=== PATIENT | female | born 1975 | race Caucasian/White ===

== ENCOUNTER 2023-06-05 11:20 | Inpatient (IN) | payer MEDICAID ==
[~2023-06-05] VITALS: Ht 157.5 cm; Wt 81.6 kg
--- NOTE | 2023-06-05 11:20 | NUR ---
[facility] TO ER BED 1
[2023-06-05 11:34] VITALS: BP 130/80; PULSE 100; RESP 20; TEMP 98.1; O2SAT 99
--- NOTE | 2023-06-05 11:39 | NUR ---
MOVED TO ER BED 5
--- NOTE | 2023-06-05 11:51 | NUR ---
Lab at bedside.
[2023-06-05 12:02] LABS: BASOPHILS % (AUTO) 0.8 % (0.0-2.0); EOSINOPHILS % (AUTO) 0.5 % (0.0-4.0); HEMATOCRIT 20.6 % (36-48); LYMPHOCYTES # (AUTO) 1.2 K/uL (2.5-16.5); LYMPHOCYTES % (AUTO) 20.3 % (20.5-51.1); MEAN CORPUSCULAR HEMOGLOBIN 35 pg (27-31); MEAN CORPUSCULAR HGB CONC 34 g/dL (33-37); MEAN CORPUSCULAR VOLUME 103.1 fL (80-94); MONOCYTES # (AUTO) 0.5 K/uL (0.8-1.0); MONOCYTES % (AUTO) 8.1 % (1.7-9.3); NEUTROPHILS # (AUTO) 4.3 K/uL (1.8-7.7); NEUTROPHILS % (AUTO) 70.3 % (42.2-75.2); PLATELET COUNT (AUTO) 28 K/uL (140-450); RED CELL DISTRIBUTION WIDTH 21.8 % (11.6-13.7); WHITE BLOOD COUNT (AUTO) 6.1 K/uL (4.8-10.8)
[2023-06-05 12:19] LABS: ALBUMIN 1.8 g/dL (3.4-5.0); ANION GAP 17.4 (8-16); CARBON DIOXIDE 23.8 mmol/L (21-32); CREATININE 0.5 mg/dL (0.6-1.3); POTASSIUM 4.2 mmol/L (3.5-5.1); TOTAL BILIRUBIN 8.3 mg/dL (0.0-1.0)
[2023-06-05] MEDS ORDERED: LORazepam 2 MG/ML VIAL IVP ONE (12:20)
[2023-06-05 13:02] LABS: APPEARANCE,URINE CLOUDY (CLEAR); BILIRUBIN,URINE 3+ (NEGATIVE); BLOOD, URINE 3+ (NEGATIVE); COLOR,URINE RED (YELLOW); LEUKOCYTE ESTERASE ,URINE TRACE (NEGATIVE); NITRITE, URINE POSITIVE (NEGATIVE); PH,URINE 6.5 (5.0-9.0); UGLUCOSE 1+ (NEGATIVE)
--- NOTE | 2023-06-05 13:02 | NUR ---
Patient is refusing blood transfusion. Dr. Canales explaining blood transfusion to patient.
[2023-06-05] MEDS ORDERED: ONDANSETRON 4 MG/2 ML VIAL IVP ONE (13:05)
[2023-06-05] MEDS ORDERED: MORPHINE SULFATE 4 MG/ML SYR IVP ONE (13:05)
[2023-06-05 13:10] LABS: RBC,URINE >100 /HPF (0-5)
--- NOTE | 2023-06-05 13:11 | NUR ---
Per patient, deniestaking any prescribed medication. Med rec complete.
--- NOTE | 2023-06-05 13:23 | NUR ---
1ST CONTACT WITH PT. IN BED 5. NO ACUTE DISTRESS. AWAKE AND ALERT. PT. WITH NO VOMITING OR EMESIS NOW. C/O ABD. PAIN AND WILL BE MEDICATED. PT. WITH ADB. DISTENSION NOW 2ND CHRONIC ALCOHOLISM. PT. WITH HAND TREMORS 2ND TO POSSIBLE ETOH WITHDRAWAL. PT. IS CALM AND COOPERTIVE.
[2023-06-05] MEDS ORDERED: HYDROcodone/APAP 7.5/325 MG 1 TAB PO PRN (13:30)
[2023-06-05] MEDS ORDERED: ZOLPIDEM 5 MG TAB PO PRN (13:30)
[2023-06-05] MEDS ORDERED: DOCUSATE SODIUM 100 MG GELCAP PO PRN (13:30)
[2023-06-05] MEDS ORDERED: ACETAMINOPHEN 325 MG TAB PO PRN (13:30)
[2023-06-05] MEDS ORDERED: ONDANSETRON 4 MG/2 ML VIAL IM/IVP PRN (13:30)
[2023-06-05] MEDS ORDERED: POTASSIUM CHLORIDE 10 MEQ TABER PO PRN (13:30)
[2023-06-05] MEDS ORDERED: guaiFENesin DM 200/20 MG-10 ML 10 ML UDC PO PRN (13:30)
[2023-06-05] MEDS ORDERED: LORazepam 2 MG/ML VIAL ONE (13:31)
[2023-06-05] MEDS ORDERED: OCTREOTIDE ACETATE 100 MCG/ML VIAL IV SCH (13:35)
--- NOTE | 2023-06-05 13:42 | NUR ---
PT. MEDICATED ORDERED AND WILL CONT. TO MONITOR. NO ACUTE DISTRESS.
--- NOTE | 2023-06-05 13:53 | NUR ---
PATIENT HAS BEEN SCREENED AND CATEGORIZED HIGH NUTRITION RISK. PATIENT WILL BE SEEN WITHIN 1-2 DAYS OF ADMISSION. 06/06/23-06/07/[address] DUNG [address]
[2023-06-05 14:00] LABS: PROTHROMBIN TIME 22.2 secs (10.8-13.4)
[2023-06-05 14:05] LABS: CHOL/HDL RATIO 8.4 (1-4.5); FREE T4 (FREE THYROXINE) 1.6 ng/dL (0.76-1.46); MAGNESIUM 1.5 mg/dL (1.8-2.4); PHOSPHORUS 2.1 mg/dL (2.5-4.9); THYROID STIMULATING HORMONE 3.95 uIU/mL (0.34-3.74)
--- NOTE | 2023-06-05 14:50 | NUR ---
Patient will be admitted to care of Dr. Navarro. Admited to Telemetry. Will go to room 110-B. Belongings list completed. Report to MIKEL Zavala.
--- NOTE | 2023-06-05 15:30 | NUR ---
RECEIVED PATIENT FROM ED. PATIENT ASLEEP NORMAL RISE AND FALL OF CHEST
[2023-06-05] MEDS: OCTREOTIDE ACETATE 1.25 MG in NACL 0.9% 250 ML IV SCH (15:54)
[2023-06-05] MEDS: DEXT 5% /NACL 0.9% 1,000 ML IV SCH (15:54)
--- NOTE | 2023-06-05 16:00 | NUR ---
PATIENT DROOLS BLOOD WHEN ASLEEP BUT WHEN AWAKE, BLEEDING NOT PRESENT.
[2023-06-05 16:24] VITALS: PULSE 103; RESP 18; O2SAT 97
--- NOTE | 2023-06-05 16:24 | NUR ---
The patient's care was reviewed and supervised by AMY PANG RN.
--- NOTE | 2023-06-05 17:15 | NUR ---
PATIENTS VITALS 110/78 110HR 98.7 TEMPERATURE 16RR. PATIENT SHOWS NO SIGNS OF REACTIONS. PATIENT IS STABLE AND AWAKE. AOx4. VERBALIZES NO CONCERNS Addendum: 06/05/23 at 2223 by KALIE LIRA RN WRONG TIME. NOTE TIME FOR 9672
--- NOTE | 2023-06-05 17:20 | NUR ---
PATIENT'S FAMILY VERBALIZES THAT PATIENT HAD SYMPTOMS 4 DAYS PRIOR. THEY MENTIONED OF BRUISES PRESENT ON THE PATIENT'S ARM, ABDOMEN, BACK AND RIGHT HEEL. FAMILY VERBALIZES BRUISES HAVE BEEN PRESENT SINCE 4 DAYS PRIOR.
--- NOTE | 2023-06-05 17:25 | NUR ---
CHARGE NURSE INFORMED OF ALL OF PATIENT'S CURRENT CONDITION. FAMILY ALSO SPOKE WITH CHARGE NURSE
--- NOTE | 2023-06-05 17:30 | NUR ---
PATIENT'S BLOOD TRANSFUSION STARTED. VITAL SIGNS TAKEN PRIOR TO STARTING, PATIENT VITALS STABLE WITHIN NORMAL CONDITIONS. 131/62 101 16 98.5
--- NOTE | 2023-06-05 17:30 | NUR ---
PATIENT UNDERGOING BLOOD TRANSFUSION. PATIENT SON AND BROTHER IN LAW PRESENT IN THE ROOM. PATIENT NOW AWAKE AND VITALS STABLE
--- NOTE | 2023-06-05 19:20 | NUR ---
PATIENT SEEN PRIOR TO TRANSFER OF CARE. PATIENT AWAKE, FAMILY AT BEDSIDE. PATIENT'S VITALS STABLE, BLOOD TRANSFUSION STILL INFUSING.
--- NOTE | 2023-06-05 19:30 | NUR ---
ENDORSED PATIENT TO PM NURSE FOR CONTINUATION OF CARE
--- NOTE | 2023-06-05 19:31 | NUR ---
RECEIVED ENDORSEMENT FROM KALIE RN, PATIENT WAS STILL RECEIVING THE BLOOD TRANSFUSION. NO NOTED ADVERSE REACTION FROM THE BLOOD PRODUCT. PATIENT WAS ABLE TO SPEAK WITH FAMILY ON HER CELL PHONE AND SPEAK WITH NURSING. PATIENT DENIES ANY PAIN/DISCOMFORT. ALL NEEDS WERE MET AT THIS TIME. NO NOTED RESPIRATORY DISTRESS. CHEST NOTED RISING AND FALLING WITHOUT INCIDENT. PATIENT KEPT CLEAN AND DRY AT THIS TIME. PATIENT DENIES ANY NAUSEA OR VOMITING. COVERING RN WAS NOTIFIED OF THE BLOOD INFUSING AND THE NEED FOR THE STATIN TO CONTINUE AFTER THE TRANSFUSING. SIDE RAILS UP X 2 FOR SAFETY AND ADJUSTMENT. CALL LIGHT WITHIN REACH FOR ALL ASSISTANCE. [email or web address]
[2023-06-05 20:00] VITALS: BP 121/58; PULSE 109; PULSE 111; RESP 18; TEMP 98.3; O2SAT 100; O2SAT 97
--- NOTE | 2023-06-05 20:00 | NUR ---
Patient's Plan of Care was discussed and reviewed with HEATHER MENDES:
--- NOTE | 2023-06-05 20:50 | NUR ---
BLOOD TRANSFUSION DONE. VITAL SIGNS FOLLOWS: BP-124/59 RR-16 HR-108 TEMP-97.0. PATIENT DENIES PAIN. NO ADVERSE REACTION NOTED.
--- NOTE | 2023-06-05 23:51 | NUR ---
PATIENT NOTED COUGHED UP SMALL AMOUNT OF BLOOD. NURSING GAVE HER MOUTH WASH TO GARGLE WITH THEN GAVE HER SOME WATER PER PATIENT'S REQUEST. ALL NEEDS MET AT THIS TIME. PATIENT WAS CLEANED UP. SIDE RAILS UP X 2 CALL LIGHT WITHIN REACH FOR ASSISTANCE. [email or web address]
[2023-06-06] VITALS: BP 120/56; PULSE 110; PULSE 111; RESP 18; TEMP 98.9; O2SAT 96
[2023-06-06] MEDS: DEXT 5% /NACL 0.9% 1,000 ML IV SCH ×2 (01:18→06:10)
--- NOTE | 2023-06-06 01:23 | NUR ---
SPOKE WITH PHARMACY TO VERIFY IF THE STATIN AND DEXTROSE 5% WITH NORMAL SALINE ARE COMPATIBLE AND THEY ARE. IV FLUID WERE STARTED. COVING RN WAS MADE AWARE. SIDE RAILS UP, CALL LIGHT WITHIN REACH. [email or web address]
[2023-06-06 04:00] VITALS: BP 123/67; PULSE 107; PULSE 108; RESP 19; TEMP 97.5; O2SAT 98
--- NOTE | 2023-06-06 05:03 | NUR ---
PATIENT WAS ABLE TO GIVE HERSELF A BED BATH. URINE COLLECTED FOR DRUG SCREEN. PATIENT COMPLAINED OF NAUSEA, COVERING RN GAVE ANTI-NAUSEA MEDICATION. PATIENT STILL HAS DRY BLOOD IN HER MOUTH. PATIENT WAS INSTRUCTED TO RINSE MOUTH OUT WITH WATER AND MOUTH WASH. PATIENT'S BEDDING WAS COMPLETELY CHANGED OUT. ALL NEEDS MET SIDE RAILS UP X 2 CALL LIGHT WITHIN REACH. [email or web address]
--- NOTE | 2023-06-06 05:03 | NUR ---
PATIENT WAS ASLEEP. CHEST WAS RISING AND FALLING WITHOUT INCIDENT. ALL NEEDS MET. PATIENT REMAINS CLEAN AND DRY. NO S/S OF PAIN/DISCOMFORT. SIDE RAILS UP X 2 CALL LIGHT WITHIN REACH. [email or web address]
[2023-06-06 06:28] LABS: BASOPHILS % (AUTO) 0.7 % (0.0-2.0); EOSINOPHILS % (AUTO) 0.3 % (0.0-4.0); HEMATOCRIT 21.1 % (36-48); HEMOGLOBIN 7.3 g/dL (12.0-16.0); LYMPHOCYTES # (AUTO) 0.4 K/uL (2.5-16.5); LYMPHOCYTES % (AUTO) 7.2 % (20.5-51.1); MEAN CORPUSCULAR HEMOGLOBIN 34 pg (27-31); MEAN CORPUSCULAR HGB CONC 35 g/dL (33-37); MEAN CORPUSCULAR VOLUME 99.2 fL (80-94); MONOCYTES # (AUTO) 0.6 K/uL (0.8-1.0); NEUTROPHILS % (AUTO) 81.8 % (42.2-75.2); PLATELET COUNT (AUTO) 24 K/uL (140-450); RED BLOOD CELL COUNT(AUTO) 2.13 MIL/uL (4.20-5.40); WHITE BLOOD COUNT (AUTO) 6.1 K/uL (4.8-10.8)
[2023-06-06] MEDS: BLOOD GLUCOSE MONITORING 1 DEV DEV FS SCH ×4 (06:55→21:31)
[2023-06-06 06:57] LABS: BENZODIAZEPINE, URINE POSITIVE ng/mL (NEG <=200)
[2023-06-06] MEDS: INSULIN LISPRO SLIDING SCALE 100 UNITS/ML VIAL SUBQ PRN ×4 (06:57→21:35)
[2023-06-06 06:58] LABS: BARBITURATE, URINE NEGATIVE ng/ml (NEG <=200); CANNABINOID, URINE NEGATIVE ng/mL (NEG <=50); COCAINE, URINE NEGATIVE ng/mL (NEG <=300); OPIATE, URINE POSITIVE ng/mL (NEG <=2000); PHENCYCLIDINE SCREEN,URINE NEGATIVE ng/mL (NEG <=25)
--- NOTE | 2023-06-06 07:03 | NUR ---
ENDORSED CARE TO PAYAL MORIN, PATIENT WAS STABLE DURING THE CHANGE OF SHIFT. ENDORSE PATIENT SHAKING D/T LAURA. [email or web address] Addendum: 06/06/23 at 0706 by Shala Sanchez LVN ERROR TO ABOVE NOTATION: ENDORSED CARE TO PAYAL MORIN, PATIENT WAS STABLE DURING THE CHANGE OF SHIFT. ENDORSE PATIENT HAS NEW ORDERS FOR PAIN MANAGEMENT FROM DR URBAN. PATIENT BLEEDS FROM THE MOUTH POST BLOOD TRANSFUSION. [email or web address]
[2023-06-06 07:10] LABS: ANION GAP 13.6 (8-16); CARBON DIOXIDE 24.8 mmol/L (21-32); CREATININE 0.6 mg/dL (0.6-1.3); POTASSIUM 3.4 mmol/L (3.5-5.1)
[2023-06-06] MEDS ORDERED: MAG SULF 2000 MG/WATER PREMIX 50 ML IV PRN (07:10)
[2023-06-06] MEDS ORDERED: DOCUSATE SODIUM 100 MG GELCAP PO PRN (07:10)
[2023-06-06] MEDS ORDERED: LORazepam 2 MG/ML VIAL IVP PRN (07:10)
[2023-06-06] MEDS ORDERED: POTASSIUM CHLORIDE 10 MEQ TABER PO PRN (07:10)
--- NOTE | 2023-06-06 07:10 | NUR ---
RECEIVED REPORT FROM MANAGER CARE NURSE FOR CONTINUITY OF CARE. PT STABLE AT THIS TIME.
[2023-06-06 08:00] VITALS: BP 124/60; PULSE 108; PULSE 110; RESP 18; TEMP 98.4; O2SAT 98
[2023-06-06 08:08] LABS: T4 (THYROXINE) 6.6 ug/dL (4.5-12.0)
--- NOTE | 2023-06-06 09:45 | NUR ---
TRIED TO PLACE A SECOND IV O N THE PATIENT BUT WAS UNABLE TO GET ONE. WILL ASK IF SOME ONE ELSE COULD TRY.
[2023-06-06] MEDS: PANTOPRAZOLE 40 MG INJ VIAL IVP SCH ×2 (09:47→21:25)
[2023-06-06] MEDS: MORPHINE SULFATE 2 MG/ML SYR IVP PRN (09:48)
[2023-06-06] MEDS: ONDANSETRON 4 MG/2 ML VIAL IVP PRN (09:48)
[2023-06-06] MEDS ORDERED: POTASSIUM CHLORIDE 40 MEQ, LIDOCAINE 1% 25 MG in NACL 0.9% 250 ML IV SCH (10:00)
--- NOTE | 2023-06-06 10:05 | NUR ---
RAN TRIED TO PLACE AN IV IN THE PATIENT FOR ME BUT WAS UNABLE TO GET ONE. WILL ASK CHARGE NURSE TO TRY.
[2023-06-06 12:00] VITALS: BP 108/56; PULSE 102; PULSE 104; RESP 20; TEMP 98.9; O2SAT 96
[2023-06-06] MEDS: OCTREOTIDE ACETATE 1.25 MG in NACL 0.9% 250 ML IV SCH (14:42)
[2023-06-06 16:00] VITALS: BP 115/55; PULSE 103; PULSE 120; RESP 18; TEMP 98.8; O2SAT 96
[2023-06-06 17:39] LABS: HEMATOCRIT 20.8 % (36-48); HEMOGLOBIN 7.1 g/dL (12.0-16.0)
--- NOTE | 2023-06-06 18:05 | NUR ---
GOT A CALL FROM LAB TO LET ME KNOW THAT THE PATIENTS HGB IS 7.1, HCT IS 20.8 AND LET ME KNOW THAT THE PLATELETS ARE 29 WHICH ARE SUPER LOW. I MESSAGED THE DR AND SHE SAID OKAY.
--- NOTE | 2023-06-06 19:26 | NUR ---
ENDORSED TO PRECAST CONCRETE IRONWORKER NURSE FOR CONTINUITY OF CARE. PT STABLE AT THIS TIME.
--- NOTE | 2023-06-06 19:30 | NUR ---
RECEIVED REPORT FROM DAY SHIFT NURSE PAYAL FOR CONTINUITY OF CARE. PATIENT IS A&O X4, YI SPEAKING. PATIENT IS ON ROOM AIR, BREATHING IS NORMAL WITH SYMMETRICAL RISE AND FALL OF CHEST. IV IS A 20G LAC AND 22G RFA; RUNNING SANDOSTATIN AT 10ML/HR. PATIENT IS AWAKE, LYING IN SEMI-FOWLERS POSITION. BED IS IN LOWEST POSITION, WHEELS LOCKED, CALL LIGHT IN PLACE. WILL CONTINUE TO OBSERVE PATIENT.
[2023-06-06 20:00] VITALS: BP 124/64; PULSE 110; PULSE 113; RESP 18; TEMP 98.3; O2SAT 98
--- NOTE | 2023-06-06 21:30 | NUR ---
WENT INTO ROOM TO ADMINISTER 2100 MEDICATIONS TO PATIENT. PATIENT WAS SITTING UP IN BED HOLDING BLANKET OVER LEFT AC; PATIENT'S IV HAD COME OUT. PLACED DRESSING OVER IV SITE AND APPLIED PRESSURE TO OLD IV SITE FOR A FEW MINUTES. REMOVED DRESSING AND ASSESSED SITE. PATIENT WAS NO LONGER BLEEDING. CLEANED PATIENT'S ARM WITH SOAP AND WATER, REMOVED BLANKETS AND GAVE PATIENT NEW BLANKETS. PATIENT IS STILL RUNNING SANDOSTATIN ON RIGHT FOREARM. ASKED PATIENT WHAT HAPPENED WITH HER IV; PATIENT WASN'T SURE. STOPPED PATIENT'S SANDOSTATIN; REMOVED IV AND FLUSHED SITE WITH 10 ML NS; ADMINISTERED 2100 IV PUSH MEDICATION TO PATIENT. FLUSHED SITE AGAIN WITH ANOTHER 10 ML NS; RE-HOOKED UP IV LINE AND RE-STARTED IV SANDOSTATIN. PATIENT IS LYING COMFORTABLY IN BED. BREATHING IS NORMAL WITH SYMMETRICAL RISE AND FALL OF CHEST. WILL CONTINUE TO OBSERVE PATIENT.
[2023-06-07] VITALS: BP 109/50; PULSE 100; PULSE 101; RESP 18; TEMP 97.2; O2SAT 98
--- NOTE | 2023-06-07 | NUR ---
PATIENT IS LYING SUPINE ON HER RIGHT SIDE IN BED. BREATHING IS NORMAL WITH SYMMETRICAL RISE AND FALL OF CHEST. WILL CONTINUE TO OBSERVE PATIENT.
[2023-06-07] MEDS: MORPHINE SULFATE 2 MG/ML SYR IVP PRN ×3 (03:44→23:51)
[2023-06-07] MEDS: ONDANSETRON 4 MG/2 ML VIAL IVP PRN ×2 (03:47→17:24)
--- NOTE | 2023-06-07 03:53 | NUR ---
PATIENT CALLED AND REQUESTED MORPHINE FOR PAIN. CHECKED VITALS AND CHART; MORPHINE WAS APPROPRIATE TO ADMINISTER. PATIENT ALSO COMPLAINED ABOUT NAUSEA AND VOMITING; ZOFRAN WAS APPROPRIATE TO ADMINISTER. MEDICATIONS WERE ADMINISTERED SUCCESSFULLY WITHOUT ANY ISSUES WITH IV. WILL CONTINUE TO OBSERVE PATIENT.
[2023-06-07 04:00] VITALS: BP 106/53; PULSE 95; PULSE 98; RESP 18; TEMP 97.6; O2SAT 98
--- NOTE | 2023-06-07 04:48 | NUR ---
LOOKED IN ON PATIENT TO REASSESS EFFECTIVENESS OF PAIN MEDICATION. PATIENT WAS SLEEPING. BREATHING IS NORMAL WITH SYMMETRICAL RISE AND FALL OF CHEST. IV IS RUNNING. WILL CONTINUE TO OBSERVE PATIENT.
[2023-06-07] MEDS: BLOOD GLUCOSE MONITORING 1 DEV DEV FS SCH ×4 (06:40→21:04)
[2023-06-07] MEDS: INSULIN LISPRO SLIDING SCALE 100 UNITS/ML VIAL SUBQ PRN ×4 (06:41→21:05)
[2023-06-07 06:43] LABS: BASOPHILS % (AUTO) 0.5 % (0.0-2.0); EOSINOPHILS % (AUTO) 0.4 % (0.0-4.0); HEMATOCRIT 20.2 % (36-48); LYMPHOCYTES # (AUTO) 0.7 K/uL (2.5-16.5); MEAN CORPUSCULAR HEMOGLOBIN 35 pg (27-31); MEAN CORPUSCULAR HGB CONC 34 g/dL (33-37); MEAN CORPUSCULAR VOLUME 102.4 fL (80-94); MONOCYTES # (AUTO) 0.8 K/uL (0.8-1.0); PLATELET COUNT (AUTO) 29 K/uL (140-450); RED BLOOD CELL COUNT(AUTO) 1.97 MIL/uL (4.20-5.40); RED CELL DISTRIBUTION WIDTH 22.3 % (11.6-13.7); WHITE BLOOD COUNT (AUTO) 5.5 K/uL (4.8-10.8)
[2023-06-07 06:48] LABS: ANION GAP 11.8 (8-16); CARBON DIOXIDE 26.9 mmol/L (21-32); CREATININE 0.8 mg/dL (0.6-1.3); POTASSIUM 3.7 mmol/L (3.5-5.1)
[2023-06-07 06:51] LABS: HEMOGLOBIN 6.9 g/dL (12.0-16.0)
--- NOTE | 2023-06-07 07:04 | NUR ---
RECEIVED CRITICAL LAB OF HGB 6.9. MESSAGED WARD CLERK PHYSICIAN DR. URBAN. ORDERED 1 UNIT RBC TO BE GIVEN AND STATED SHE WOULD MESSAGE DR. GAVIN SINCE MD ANEGLA IS OUT OF TOWN. PUT ORDER IN FOR PACKED RBC 1 UNIT. WILL ENDORSE TO DAY SHIFT NURSE.
[2023-06-07 07:08] LABS: LYMPHOCYTES % (AUTO) 12.6 % (20.5-51.1); MONOCYTES % (AUTO) 14.4 % (1.7-9.3); NEUTROPHILS % (AUTO) 72.1 % (42.2-75.2)
--- NOTE | 2023-06-07 07:10 | NUR ---
RECEIVED REPORT FROM FITNESS SALES CONSULTANT NURSE FOR CONTINUITY OF CARE. PT STABLE AT THIS TIME.
--- NOTE | 2023-06-07 07:29 | NUR ---
ENDORSED TO DAY SHIFT NURSE PAYAL FOR CONTINUITY OF CARE. PATIENT IS STABLE.
[2023-06-07 08:00] VITALS: BP 110/60; PULSE 96; PULSE 99; RESP 16; TEMP 97.6; O2SAT 96
--- NOTE | 2023-06-07 08:15 | NUR ---
ONE UNIT OF PRBC STARTED ON PATIENT.
[2023-06-07] MEDS: PANTOPRAZOLE 40 MG INJ VIAL IVP SCH (08:23)
[2023-06-07 08:47] LABS: ALBUMIN 1.6 g/dL (3.4-5.0); BILIRUBIN,DIRECT 5.4 mg/dL (0.0-0.3); TOTAL BILIRUBIN 10.5 mg/dL (0.0-1.0)
--- NOTE | 2023-06-07 09:00 | NUR ---
PT TOLERATING BLOOD WELL WITH NO COMPLAINTS AT THIS TIME. VITALS ARE WNL.
--- NOTE | 2023-06-07 10:24 | NUR ---
PT TAKEN TO SURGERY FOR EGD. PT STABLE. BLOOD WAS TAKEN WITH PATIENT BECAUSE I WAS NOT FINISHED.
[2023-06-07] MEDS ORDERED: fentaNYL citrate 0.05 MG/ML VIAL ONE (10:33)
[2023-06-07] MEDS ORDERED: MIDAZOLAM 5 MG/5 ML VIAL ONE (10:33)
--- NOTE | 2023-06-07 11:10 | NUR ---
PT RETURNED FROM EGD. THEY REPORTED NO BLEEDING SHOWN ON TEST. PT IS AWAKE BUT DROWSY. STABLE AT THIS TIME.
--- NOTE | 2023-06-07 11:15 | NUR ---
BLOOD HAD FINISHED IN OR BUT NOW WAITING FOR THE LINE TO BE CLEARED WITH NS. PT REMAINED STABLE THROUGHOUT THE WHOLE TRANSFUSION PROCESS.
[2023-06-07 12:00] VITALS: BP 111/65; PULSE 89; PULSE 91; RESP 19; TEMP 97.4; O2SAT 97
[2023-06-07] MEDS: SUCRALFATE 1 GM TAB PO SCH ×3 (12:17→21:03)
[2023-06-07] MEDS: MIDODRINE 5 MG TAB PO SCH ×2 (12:17→19:00)
[2023-06-07] MEDS: PENTOXIFYLLINE 400 MG TABER PO SCH ×2 (12:18→16:37)
[2023-06-07] MEDS ORDERED: fentaNYL citrate 0.05 MG/ML VIAL IVP ONE (14:05)
[2023-06-07] MEDS ORDERED: MIDAZOLAM 5 MG/5 ML VIAL IV ONE (14:05)
[2023-06-07] MEDS ORDERED: fentaNYL citrate 0.05 MG/ML VIAL IVP SCH (14:30)
[2023-06-07 16:00] VITALS: BP 129/76; PULSE 62; PULSE 94; RESP 18; TEMP 97.7; O2SAT 100
[2023-06-07] MEDS: LANSOPRAZOLE 30 MG CAPDR PO SCH (16:37)
[2023-06-07 16:57] LABS: BASOPHILS # (AUTO) 0.1 K/uL (0.00-0.22); EOSINOPHILS % (AUTO) 0.6 % (0.0-4.0); HEMATOCRIT 23.2 % (36-48); HEMOGLOBIN 7.8 g/dL (12.0-16.0); LYMPHOCYTES # (AUTO) 1.1 K/uL (2.5-16.5); LYMPHOCYTES % (AUTO) 17.6 % (20.5-51.1); MEAN CORPUSCULAR HEMOGLOBIN 34 pg (27-31); MEAN CORPUSCULAR HGB CONC 34 g/dL (33-37); MEAN CORPUSCULAR VOLUME 101.1 fL (80-94); MONOCYTES # (AUTO) 0.9 K/uL (0.8-1.0); NEUTROPHILS # (AUTO) 4.2 K/uL (1.8-7.7); NEUTROPHILS % (AUTO) 66.8 % (42.2-75.2); PLATELET COUNT (AUTO) 36 K/uL (140-450); RED CELL DISTRIBUTION WIDTH 21.5 % (11.6-13.7); WHITE BLOOD COUNT (AUTO) 6.3 K/uL (4.8-10.8)
--- NOTE | 2023-06-07 17:24 | NUR ---
ARCELIA MENDES, NOTIFIED ME THAT MY PATIENT IS VOMITING. I GRABBED HER THE ZOFRAN AND ADMINISTERED IT.
--- NOTE | 2023-06-07 18:44 | NUR ---
06/07/23 RD INITIAL ASSESSMENT COMPLETED PLEASE REFER TO NUTRITION ASSESSMENT UNDER CARE ACTIVITY FOR ESTIMATED NUTRITIONAL NEEDS. 1. CONTINUE FULL LIQUID DIET TOLERATED. WHEN/IF MEDICALLY APPROPRIATE, ADVANCE TO 60 GRAMS CARB CONTROLLED DIET. 2. MONITOR PO INTAKE AND GI SYMPTOMS 3. RD TO FOLLOW-UP 2-3 DAYS, HIGH RISK DAYNA BROWN RD
--- NOTE | 2023-06-07 19:30 | NUR ---
ENDORSED PT TO WATER PROOFER NURSE FOR CONTINUITY OF CARE. PT STABLE AT THIS TIME.
--- NOTE | 2023-06-07 19:33 | NUR ---
RECEIVED REPORT FROM AM NURSE FOR CONTINUITY OF CARE. PATIENT LYING IN BED AWAKE ALERT [place] SPEAKING. NO ACUTE DISTRESS ON ROOM AIR. NO COMPLAINTS OF PAIN. ABLE TO AMBULATE WITHOUT ASSIST. BRUISES NOTED TO LEFT SIDE, LEFT UPPER ARM, ABDOMEN. CALL LIGHT WITHIN REACH. SAFETY PRECAUTIONS IN PLACE. IV SITE TO RIGHT FOREARM SALINE LOCK.
[2023-06-07 20:00] VITALS: BP 117/69; PULSE 75; PULSE 90; PULSE 97; PULSE 99; RESP 19; TEMP 97.5; O2SAT 98
--- NOTE | 2023-06-07 21:03 | NUR ---
ADMINISTERED SCHEDULED DUE MEDICATION
--- NOTE | 2023-06-07 22:10 | NUR ---
PATIENT COMPLAINED OF PAIN TO IV SITE. STARTED A NEW IV LINE TO LEFT FOREARM 22 GAUGE WITH GOOD BACK FLOW OF BLOOD. TOLERATED WELL.
--- NOTE | 2023-06-07 23:51 | NUR ---
BUDGET ANALYST [id number] , PATIENT [id number] OF SEVERE PAIN 8/10 TO ABDOMEN AND RIGHT ARM. MEDICATED WITH MORPHINE IVP.
[2023-06-08] VITALS: BP 116/50; PULSE 90; PULSE 93; RESP 18; TEMP 97.6; O2SAT 98
[2023-06-08 04:00] VITALS: BP 123/60; PULSE 90; PULSE 94; RESP 20; TEMP 97.3; O2SAT 98
[2023-06-08] MEDS: MORPHINE SULFATE 2 MG/ML SYR IVP PRN ×2 (04:11→10:31)
[2023-06-08 06:33] LABS: BASOPHILS # (AUTO) 0.1 K/uL (0.00-0.22); EOSINOPHILS # (AUTO) 0.1 K/uL (0-0.4); LYMPHOCYTES # (AUTO) 0.8 K/uL (2.5-16.5); LYMPHOCYTES % (AUTO) 13.7 % (20.5-51.1); MEAN CORPUSCULAR HEMOGLOBIN 35 pg (27-31); MEAN CORPUSCULAR HGB CONC 35 g/dL (33-37); MEAN CORPUSCULAR VOLUME 99.9 fL (80-94); MONOCYTES % (AUTO) 17.1 % (1.7-9.3); NEUTROPHILS # (AUTO) 3.8 K/uL (1.8-7.7); NEUTROPHILS % (AUTO) 67.2 % (42.2-75.2); PLATELET COUNT (AUTO) 37 K/uL (140-450); RED CELL DISTRIBUTION WIDTH 20.7 % (11.6-13.7); WHITE BLOOD COUNT (AUTO) 5.6 K/uL (4.8-10.8)
[2023-06-08 06:38] LABS: HEMATOCRIT 19.9 % (36-48)
--- NOTE | 2023-06-08 06:38 | NUR ---
RECEIVED A CALL FROM [facility] REPORTING CRITICAL LAB VALUE HGB [address] BLANCHARD AT 0660. WAITING FOR RESPONSE.
[2023-06-08 06:43] LABS: ANION GAP 9.8 (8-16); CARBON DIOXIDE 27.7 mmol/L (21-32); CREATININE 0.7 mg/dL (0.6-1.3); POTASSIUM 3.5 mmol/L (3.5-5.1)
[2023-06-08] MEDS: BLOOD GLUCOSE MONITORING 1 DEV DEV FS SCH ×2 (06:43→12:12)
[2023-06-08] MEDS: MIDODRINE 5 MG TAB PO SCH ×2 (06:48→12:16)
[2023-06-08] MEDS: LANSOPRAZOLE 30 MG CAPDR PO SCH (06:49)
--- NOTE | 2023-06-08 07:20 | NUR ---
BEDSIDE REPORT GIVEN TO AM NURSE FOR CONTINUITY OF CARE. PATIENT STABLE.
--- NOTE | 2023-06-08 07:53 | NUR ---
RECEIVED PATIENT FROM PM NURSE FOR CONTINUATION OF CARE. PATIENT SEEN ON BED AWAKE AO X4. PATIENT VERBALIZES PAIN. PATIENT HEMOGLOBIN 7, INFORMED . NEW ORDERS GIVEN FOR 1 UNIT OF BLOOD
[2023-06-08 08:00] VITALS: BP 115/57; PULSE 88; PULSE 90; PULSE 97; RESP 16; RESP 18; TEMP 97.1; O2SAT 97; O2SAT 98
--- NOTE | 2023-06-08 09:27 | NUR ---
1 UNIT BLOOD ACQUIRED FROM BLOOD BANK. VERIFIED WITH OTHER AND DRYING SUPERVISOR COOKING CASING. PATIENTS VITALS PRIOR TO ADMINISTRATION: T98.3 P86 RR19 BP 113/63
[2023-06-08] MEDS: SUCRALFATE 1 GM TAB PO SCH ×2 (09:28→12:16)
[2023-06-08] MEDS: PENTOXIFYLLINE 400 MG TABER PO SCH ×2 (09:28→12:16)
--- NOTE | 2023-06-08 09:42 | NUR ---
VITALS RECHECK INITIAL 15 MINUTES: T98 P82 RR18 BP 103/62. PATIENT SHOWS NO SIGNS OF REACTION TO BLOOD ADMINISTRATION. BLOOD TRANSFUSION CONTINUED. WILL CONTINUE TO MONITOR AND RECHECK THE PATIENT
[2023-06-08] MEDS ORDERED: METR-520 PO (12:07)
[2023-06-08] MEDS ORDERED: LANS30EC68 PO (12:07)
[2023-06-08 13:03] VITALS: BP 110/70; PULSE 88; RESP 19; TEMP 98
== END 2023-06-08 14:45 | disposition home or self-care (01) | DRG 720 ==
LOC: MED 11:20 → MTU 12:49
PROVIDERS: ADMIT Family Medicine; ATTEND Family Medicine
PROC: 30233N1 Transfusion of Nonautologous Red Blood Cells into Peripheral Vein, Percutaneous Approach (ICD-10-PCS; 2023-06-05)
PROC: 0DJ08ZZ Inspection of Upper Intestinal Tract, Via Natural or Artificial Opening Endoscopic (ICD-10-PCS; principal; 2023-06-07 10:00)
DX: A41.9 Sepsis, unspecified organism (principal); E43 Unspecified severe protein-calorie malnutrition; D69.6 Thrombocytopenia, unspecified; E83.51 Hypocalcemia; E87.1 Hypo-osmolality and hyponatremia; D63.8 Anemia in other chronic diseases classified elsewhere; K70.31 Alcoholic cirrhosis of liver with ascites; K31.89 Other diseases of stomach and duodenum; F10.10 Alcohol abuse, uncomplicated; N39.0 Urinary tract infection, site not specified; R74.01 Elevation of levels of liver transaminase levels; E87.6 Hypokalemia; E11.9 Type 2 diabetes mellitus without complications; I10 Essential (primary) hypertension; E78.5 Hyperlipidemia, unspecified; R16.1 Splenomegaly, not elsewhere classified; K82.8 Other specified diseases of gallbladder; E66.9 Obesity, unspecified; Z68.32 Body mass index [BMI] 32.0-32.9, adult
CPT/HCPCS: 36415; 36430; 76700; 80048; 80053; 80076; 80305; 81001; 82140; 82150; 82948; 83036; 83690; 83735; 83880; 84100; 84436; 84439; 84443; 84479; 85018; 85025; 85610; 85730; 86886; 86900; 86901; 86920; 87081; 87086; 96374; 96375; 99291; C9113; G0482; J0696; J1815; J2001; J2060; J2250; J2270; J2354; J2405; J3010; J3480; J7030; J7060; P9016; Q0092